=== PATIENT | male | born 1930 | race Caucasian/White ===

== ENCOUNTER 2017-08-04 07:59 | Emergency (ER) | payer OTHER ==
--- OUTSIDE RECORDS SUMMARY | 2017-08-04 08:02 | XMS REPORT | Clinical Summary ---
:1930 Author Organization [facility] Address [address] [place] [address] Care Team Providers Name Role Phone Alexandre Johnson MD Primary Care Provider Allergies Not on File Current Medications Prescription Sig. Disp. Refills Start Date End Date Status pantoprazole (PROTONIX) 40 Take 40 mg by Active MG EC tablet mouth daily. calcitriol (ROCALTROL) Take 0.25 mcg by Active 0.25 MCG capsule mouth daily. clopidogrel (PLAVIX) 75 mg Take 75 mg by Active tablet mouth daily. levothyroxine (SYNTHROID, Take 25 mcg by Active LEVOXYL) 25 mcg tablet mouth every morning. rOPINIRole (REQUIP) 4 MG Take 4 mg by mouth Active tablet nightly. atorvastatin (LIPITOR) 10 Take 10 mg by Active MG tablet mouth daily. tamsulosin (FLOMAX) 0.4 mg Take 0.4 mg by Active capsule,extended release mouth daily. 24hr metoprolol tartrate Take 25 mg by Active (LOPRESSOR) 25 mg tablet mouth 2 (two) times a day. latanoprost (XALATAN) 1 drop nightly. Active 0.005 % ophthalmic solution Active Problems Not on file Encounters Date Type Specialty Care Team Description 06/26/2017 Office Visit General Surgery Margarito Holguin MD Esophageal dysphagia (Primary Dx) 03/22/2017 Abstract General Surgery Margarito Holguin MD 03/22/2017 Abstract General Surgery Margarito Holguin MD 03/20/2017 Abstract General Surgery Margarito Holguin MD 03/20/2017 Abstract General Surgery Margarito Holguin MD 03/20/2017 Abstract General Surgery Margarito Holguin MD after 08/03/2016 Social History Tobacco Use Types Packs/Day Years Used Date Former Smoker Quit: 1967 Smokeless Tobacco: Never Used Alcohol Use Drinks/Week oz/Week Comments Yes 1 Glasses of wine 0.6 Sex Assigned at Date Recorded Not on file Last Filed Vital Signs Vital Sign Reading Time Taken Blood Pressure 147/81 06/26/2017 2:17 PM CDT Pulse 53 06/26/2017 2:17 PM CDT Temperature 36.4 C (97.6 F) 06/26/2017 2:17 PM CDT Respiratory Rate - - Oxygen Saturation 97% 06/26/2017 2:17 PM CDT Inhaled Oxygen Concentration - - Weight 80.6 kg (177 lb 9.6 oz) 06/26/2017 2:17 PM CDT Height 177.8 cm (5' 10") 06/26/2017 2:17 PM CDT Body Mass Index 25.48 06/26/2017 2:17 PM CDT Plan of Treatment Date Type Specialty Care Team Description 08/29/2017 Surgery Gastroenterology Margarito Holguin MD EGD WITH DILATION [address] [facility] [address] [place] [address] 08/29/2017 Procedure Pass Gastroenterology 08/29/2017 Hospital Encounter Gastroenterology Margarito Holguin MD [address] [facility] [address] [place] [address] Health Maintenance Due Date Last Done Comments SHINGRIX VACCINE (#1) 1980 ZOSTER VACCINE 1990 PNEUMOCOCCAL POLYSACCHARIDE VACCINE AGE 65 AND OVER 1995 PNEUMOCOCCAL-13 1995 INFLUENZA VACCINE 11/08/2017 Results Not on fileafter 08/03/2016 Insurance Payer Benefit Plan / Group Subscriber ID Type Phone Address AETNA MEDICARE AETNA MEDICARE HMO/PPO [facility] xxxxxxxx HMO [phone] [facility], [facility] [id number]
--- NOTE | 2017-08-04 09:30 | EDPHYS ---
Physician Documentation [facility] Name: Greg Huntley Age: 87 yrs Sex: Male : 1930 Arrival Date: 08/04/2017 Time: 08:01 Bed 5 Private MD: Alexandre Johnson V ED Physician Josh Garcia HPI: 08/04 09:24 This 87 yrs old Male presents to ER via Ambulatory with complaints of Fall kdr Injury, Wrist Injury. 09:24 Details of fall: The patient fell from an upright position, while walking. Onset: The kdr symptoms/episode began/occurred suddenly, just prior to arrival. Associated injuries: The patient sustained right wrist, deformity, hematoma, swelling. Severity of symptoms: At their worst the symptoms were mild, in the emergency department the symptoms are unchanged. The patient has not experienced similar symptoms in the past. The patient has not recently seen a physician. Historical: - Allergies: 08:19 No Known Allergies; sg - Home Meds: 08:19 atorvastatin oral oral [Active]; tamsulosin oral oral [Active]; Aspirin Oral [Active]; sg Docusate Sodium Oral [Active]; Niacin Oral [Active]; clopidogrel oral oral [Active]; - PMHx: 08:19 Hypertension; sg 08:21 Benign Prostatic Hypertrophy; Diverticulitis; TIA; CVA; sg - PSHx: 08:21 Appendectomy; Knee surgery; sg - Immunization history: Last tetanus immunization: - up to date. ROS: 09:24 Constitutional: Negative for fever, chills, and weight loss, Eyes: Negative for injury, kdr pain, redness, and discharge, Neck: Negative for injury, pain, and swelling, Cardiovascular: Negative for chest pain, palpitations, and edema, Respiratory: Negative for shortness of breath, cough, wheezing, and pleuritic chest pain, Abdomen/GI: Negative for abdominal pain, nausea, vomiting, diarrhea, and constipation, Back: Negative for injury and pain, : Negative for injury, bleeding, discharge, and swelling, Skin: Negative for injury, rash, and discoloration, Neuro: Negative for headache, weakness, numbness, tingling, and seizure activity. Psych: Negative for depression, anxiety, suicide ideation, homicidal ideation, and hallucinations, Allergy/Immunology: Negative for hives, rash, and allergies, Endocrine: Negative for neck swelling, polydipsia, polyuria, polyphagia, and marked weight changes, Hematologic/Lymphatic: Negative for swollen nodes, abnormal bleeding, and unusual bruising. 09:24 MS/extremity: Positive for injury or acute deformity, ecchymosis, pain, swelling, of the right wrist. Exam: 09:24 Constitutional: This is a well developed, well nourished patient who is awake, alert, kdr and in no acute distress. Head/Face: Normocephalic, atraumatic. Eyes: Pupils equal round and reactive to light, extra-ocular motions intact. Lids and lashes normal. Conjunctiva and sclera are non-icteric and not injected. Cornea within normal limits. Periorbital areas with no swelling, redness, or edema. Neck: Trachea midline, no thyromegaly or masses palpated, and no cervical lymphadenopathy. Supple, full range of motion without nuchal rigidity, or vertebral point tenderness. No Meningismus. Chest/axilla: Normal chest wall appearance and motion. Nontender with no deformity. No lesions are appreciated. Cardiovascular: Regular rate and rhythm with a normal S1 and S2. No gallops, murmurs, or rubs. Normal PMI, no JVD. No pulse deficits. Respiratory: Lungs have equal breath sounds bilaterally, clear to auscultation and percussion. No rales, rhonchi or wheezes noted. No increased work of breathing, no retractions or nasal flaring. Abdomen/GI: Soft, non-tender, with normal bowel sounds. No distension or tympany. No guarding or rebound. No evidence of tenderness throughout. Back: No spinal tenderness. No costovertebral tenderness. Full range of motion. Skin: Warm, dry with normal turgor. Normal color with no rashes, no lesions, and no evidence of cellulitis. Neuro: Awake and alert, GCS 15, oriented to person, place, time, and situation. Cranial nerves II-XII grossly intact. Motor strength 5/5 in all extremities. Sensory grossly intact. Cerebellar exam normal. Normal gait. Psych: Awake, alert, with orientation to person, place and time. Behavior, mood, and affect are within normal limits. 09:24 Musculoskeletal/extremity: Extremities: grossly normal except: noted in the right wrist: ecchymosis, swelling, no acute changes. Vital Signs: 08:15 BP 183 / 85; Pulse 87; Resp 18; Temp 97.7; Pulse Ox 98% on R/A; Pain 6/10; sg 09:15 BP 172 / 80; Pulse 60 MON; Resp 17 S; Pulse Ox 98% on R/A; Pain 3/10; sg Nikita Coma Score: 08:15 Eye Response: spontaneous(4). Verbal Response: oriented(5). Motor Response: obeys sg commands(6). Total: 15. 09:15 Eye Response: spontaneous(4). Verbal Response: oriented(5). Motor Response: obeys sg commands(6). Total: 15. Trauma Score (Adult): 08:15 Eye Response: spontaneous(1); Verbal Response: oriented(1); Motor Response: obeys sg commands(2); Systolic BP: > 89 mm Hg(4); Respiratory Rate: 10 to 29 per min(4); [place] Score: 15; Trauma Score: 12 09:15 Eye Response: spontaneous(1); Verbal Response: oriented(1); Motor Response: obeys sg commands(2); Systolic BP: > 89 mm Hg(4); Respiratory Rate: 10 to 29 per min(4); [place] Score: 15; Trauma Score: 12 MDM: 09:24 Data reviewed: vital signs, nurses notes, radiologic studies. Counseling: I had a kdr detailed discussion with the patient and/or guardian regarding: the historical points, exam findings, and any diagnostic results supporting the discharge/admit diagnosis, radiology results, the need for outpatient follow up. ED course: Follow-up with ortho. 09:29 Patient medically screened. kdr 08/04 08:26 Order name: Wrist Right 3 View XRAY kdr 08/04 08:27 Order name: Renny wrap-joint; Complete Time: 09:34 kdr Administered Medications: 08:15 Not Given (Physician Discretion): TORadol 30 mg IVP once iw Disposition: 08/04/17 09:29 Discharged to Home. Impression: Other specified sprain of right wrist. - Condition is Stable. - Discharge Instructions: Wrist Pain, [id number]. - Medication Reconciliation Form, Thank You Letter form. - Follow up: Alexandre Johnson MD; When: 2 - 3 days; Reason: If symptoms return, Further diagnostic work-up, Recheck today's complaints, Continuance of care, Re-evaluation by your physician. Follow up: Gerry Gunn MD; When: 2 - 3 days; Reason: If symptoms return, Further diagnostic work-up, Recheck today's complaints, Continuance of care, Re-evaluation by your physician. - Problem is new. - Symptoms have improved. Signatures: Dispatcher [employer] EDMS Jay Calderon RN RN Josh Garcia MD MD [facility] Yina Oneal RN Corrections: (The following items were deleted from the chart) 08:15 08:10 Abdomen Pelvis W Con+CT.RAD.BRZ ordered. EDMS EDMS 08:16 08:10 IV Saline Lock ordered. kdr iw 08:20 08:10 BASIC METABOLIC PANEL+C.LAB.BRZ ordered. EDMS EDMS 08:20 08:10 CBC+H.LAB.BRZ ordered. EDMS EDMS 08:20 08:10 Creatinine for Radiology+C.LAB.BRZ ordered. EDMS EDMS 08:20 08:10 HEPATIC FUNCTION+C.LAB.BRZ ordered. EDMS EDMS 08:20 08:10 LIPASE+C.LAB.BRZ ordered. EDMS EDMS 08:20 08:10 UA MICROSCOPIC+U.LAB.BRZ ordered. EDMS EDMS 08:26 08:10 Labs collected and sent ordered. kdr iw 08:26 08:10 Urine Dipstick-Ancillary ordered. kdr iw
--- NOTE | 2017-08-04 09:30 | ER ---
Nurse's Notes [facility] Name: Greg Huntley Age: 87 yrs Sex: Male : 1930 Arrival Date: 08/04/2017 Time: 08:01 Bed 5 Private MD: Alexandre Johnson V Diagnosis: Other specified sprain of right wrist Presentation: 08/04 08:00 Presenting complaint: Patient states: Well, if you could see a film of how you fell you ae1 just really wouldn't believe it. Im pretty sure my house shoe got me tripped up and when i fell i put my right hand down to catch me and its just really bruised and swollen. pain is about a 6/10. Care prior to arrival: None. Mechanism of Injury: Fall from standing position. 08:00 Acuity: ADDY 4 ae1 08:00 Method Of Arrival: Ambulatory ae1 Historical: - Allergies: 08:19 No Known Allergies; sg - Home Meds: 08:19 atorvastatin oral oral [Active]; tamsulosin oral oral [Active]; Aspirin Oral [Active]; sg Docusate Sodium Oral [Active]; Niacin Oral [Active]; clopidogrel oral oral [Active]; - PMHx: 08:19 Hypertension; sg 08:21 Benign Prostatic Hypertrophy; Diverticulitis; TIA; CVA; sg - PSHx: 08:21 Appendectomy; Knee surgery; sg - Immunization history: Last tetanus immunization: - up to date. Screenin:00 Abuse screen: Denies threats or abuse. Denies injuries from another. Tuberculosis sg screening: No symptoms or risk factors identified. Never had TB. Primary Survey: 08:00 A: Airway: patent. Breathing/Chest: Respiratory pattern: regular, Respiratory effort: sg spontaneous, unlabored, Breath sounds: clear, Chest inspection: symmetrical rise and fall of the chest. Circulation: Heart tones present. Pulses: palpable right radial artery and left radial artery. Skin color: pink, Skin temperature: warm. Disability Alert. 08:22 Reassessment Airway Airway Patent Oxygen No O2 Oral cavity Clear Breathing/Chest sg Respiratory pattern Regular Respiratory effort Spontaneous Unlabored Circulation Heart tones Present Pulses Palpable Color Hardin Temperature Warm Disability Alert. Secondary Survey: 08:00 HEENT: No deficits noted. Gastrointestinal: No deficits noted. : No deficits noted. sg No signs and/or symptoms were reported regarding the genitourinary system. Musculoskeletal: Circulation, motion, and sensation intact. Capillary refill is brisk, in bilateral fingers. Range of motion: intact in all extremities, Swelling present in right wrist Reports pain in right wrist. Vital Signs: 08:15 BP 183 / 85; Pulse 87; Resp 18; Temp 97.7; Pulse Ox 98% on R/A; Pain 6/10; sg 09:15 BP 172 / 80; Pulse 60 MON; Resp 17 S; Pulse Ox 98% on R/A; Pain 3/10; sg Nikita Coma Score: 08:15 Eye Response: spontaneous(4). Verbal Response: oriented(5). Motor Response: obeys sg commands(6). Total: 15. 09:15 Eye Response: spontaneous(4). Verbal Response: oriented(5). Motor Response: obeys sg commands(6). Total: 15. Trauma Score (Adult): 08:15 Eye Response: spontaneous(1); Verbal Response: oriented(1); Motor Response: obeys sg commands(2); Systolic BP: > 89 mm Hg(4); Respiratory Rate: 10 to 29 per min(4); [place] Score: 15; Trauma Score: 12 09:15 Eye Response: spontaneous(1); Verbal Response: oriented(1); Motor Response: obeys sg commands(2); Systolic BP: > 89 mm Hg(4); Respiratory Rate: 10 to 29 per min(4); Nikita Score: 15; Trauma Score: 12 ED Course: 08:00 Patient has correct armband on for positive identification. Bed in low position. Call sg light in reach. Side rails up X2. 08:00 Patient maintains SpO2 saturation greater than 95% on room air. sg 08:01 Patient arrived in ED. mr 08:01 Alexandre Johnson MD is Private Physician. mr 08:08 Josh Garcia MD is Attending Physician. kdr 08:14 Triage completed. ae1 08:32 Renny wrap to right wrist Radial pulse present and within normal limits before and after jb1 application of RENNY wrap. Capillary refill was Three seconds before and after application of RENNY wrap. 08:56 X-ray completed. Portable x-ray completed in exam room. Patient tolerated procedure mh1 well. 08:58 Wrist Right 3 View XRAY In Process Unspecified. EDMS 09:28 Alexandre Johnson MD is Referral Physician. kdr 09:29 Gerry Gunn MD is Referral Physician. kdr Administered Medications: 08:15 Not Given (Physician Discretion): TORadol 30 mg IVP once iw Outcome: : Discharge ordered by . kdr 09:48 Patient left the ED. sg Signatures: Dispatcher [employer] EDOK Israel Montejo jb1 Jay Calderon RN RN sg Josh Garcia MD MD [facility] Kiah Nj Seth Fordha 1 Eder Reynoso RN RN ae1 Yina Oneal RN iw
[2017-08-04 09:52] VITALS: TEMP 97.7; O2SAT 98
[2017-08-04 09:53] VITALS: BP 172/80
--- NOTE | 2017-08-04 10:04 | RAD REPORT ---
EXAM DESCRIPTION: RAD - Wrist Right 3 View - 08/04/2017 8:58 am CLINICAL HISTORY: Fall, wrist pain COMPARISON: None. FINDINGS: No fracture is identified. There is no dislocation or periosteal reaction noted. Degenerat reilly changes are present along the joint spaces of the trapezium and trapezoid articulations with the first metacarpal, second metacarpal and scaphoid bone. Radiocarpal joint space is narrowed slightly. No foreign body or other soft tissue abnormality. IMPRESSION: Degenerative changes are present as detailed. No acute fracture identifiable. Repeat imaging in 7 days recommended if the patient has continued symptoms suspicious for fracture.
== END 2017-08-04 09:48 | disposition home or self-care (01) ==
LOC: ER 07:59
DX: S63.501A Unspecified sprain of right wrist, initial encounter (principal); W18.30XA Fall on same level, unspecified, initial encounter; Y93.9 Activity, unspecified; Y92.009 Unspecified place in unspecified non-institutional (private) residence as the place of occurrence of the external cause; I10 Essential (primary) hypertension
CPT/HCPCS: 99284

== ENCOUNTER 2017-11-09 08:00 | Day surgery (SDC) | payer OTHER ==
--- NOTE | 2017-11-08 13:29 | RAD REPORT ---
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 The lungs appear clear of acute infiltrate. The heart is normal size IMPRESSION: No acute abnormalities displayed
--- NOTE | 2017-11-08 14:34 | EKG ---
Test Date: 2017-11-08 Test Time: 13:06:35 Accountant Bookkeeper: SHASHI MEASUREMENT RESULTS: Intervals: Rate: 50 MN: 174 QRSD: 86 QT: 458 QTc: 417 Creighton: P: 51 MN: 174 QRS: 3 T: 32 INTERPRETIVE STATEMENTS: Sinus bradycardia Otherwise normal ECG Compared to ECG 05/11/2015 10:38:04 Sinus rhythm no longer present Sinus arrhythmia no longer present Electronically Signed On 11-08-17 14:33:22 CDT by Rob Brunner
[2017-11-08 15:02] LABS: Absolute Lymphocytes (CBC) 1.3 K/uL (0.7-4.9); Absolute Monocytes 0.8 K/uL (0.1-1.3); Absolute Neutrophil 4.5 K/uL (1.8-8.0); Basophils % 1.1 % (0-1.3); Eosinophils % 3.8 % (0-4.4); Hematocrit 39.8 % (39.6-49.0); Lymphocytes % 18.4 % (15.3-44.8); MCH 31.6 pg (27.0-35.0); MCV 92.9 fL (80-100); MPV 8.6 fL (7.6-11.3); Monocytes % 11.8 % (3.3-12.3); RBC Red Blood Cell Count 4.29 M/uL (4.33-5.43)
[2017-11-09] MEDS: Ringers Lactate 1,000 ML IV ONE (08:00)
--- OUTSIDE RECORDS SUMMARY | 2017-11-09 08:08 | XMS REPORT | Clinical Summary ---
:1930 Author Organization [facility] Address [address] [place] [address] Care Team Providers Name Role Phone Alexandre [...] Encounters Date Type Specialty Care Team Description 08/29/2017 Procedure Pass Gastroenterology 08/24/2017 Documentation General Surgery Lily Andres MA 06/26/2017 Office Visit General Surgery Margarito Holguin, Esophageal dysphagia (Primary Dx) 03/22/2017 Abstract General Surgery Margarito Holguin MD 03/22/2017 Abstract General Surgery Margarito Holguin MD 03/20/2017 Abstract General Surgery Margarito Holguin MD 03/20/2017 Abstract General Surgery Margarito Holguin MD 03/20/2017 Abstract General Surgery Margarito Holguin MD after 11/08/2016 Social History Tobacco Use Types Packs/Day Years [...] 06/26/2017 2:17 PM CDT Plan of Treatment Health Maintenance Due Date Last Done Comments SHINGRIX VACCINE (#1) 1980 ZOSTER VACCINE 1990 PNEUMOCOCCAL POLYSACCHARIDE VACCINE AGE 65 AND OVER 1995 PNEUMOCOCCAL-13 1995 INFLUENZA VACCINE 11/08/2017 Results Not on fileafter 11/08/2016 Insurance Payer Benefit Plan / Group Subscriber ID Type Phone Address AETNA MEDICARE AETNA MEDICARE HMO/PPO [facility] xxxxxxxx HMO [phone] [facility] [id number]
[2017-11-09] MEDS ORDERED: CEFAZOLIN/SWI 1gm 1 GM/10 ML SYR ONE (08:46)
[2017-11-09] MEDS ORDERED: PROPOFOL 200 MG/20 ML VIAL IV ONE (08:56)
[2017-11-09] MEDS ORDERED: LIDOCAINE 2% MPF 5 ML VIAL ONE (08:57)
[2017-11-09] MEDS ORDERED: FENTANYL CITR 100 MCG/2 ML ONE ×2 (08:57→09:32)
[2017-11-09] MEDS ORDERED: ONDANSETRON HCL 40 MG/20 ML VIAL ONE (08:58)
[2017-11-09] MEDS ORDERED: GLYCOPYRROLATE 0.2 MG/ML SYR ONE (09:21)
[2017-11-09] MEDS ORDERED: EPHEDRINE SULF 50 MG/10 ML SYR ONE (09:23)
[2017-11-09] MEDS ORDERED: Ringers Lactate 1,000 ML IV ONE (10:45)
[2017-11-09] MEDS: MEPERIDINE HCL 50 MG/ML AMP ONE ×4 (11:08→11:35)
[2017-11-09] MEDS ORDERED: KETOROLAC 30 MG/ML INJ ONE (11:37)
[2017-11-09 11:44] VITALS: O2SAT 96
[2017-11-09] MEDS ORDERED: CODEINE 30MG/APAP 300MG TAB ONE (12:15)
[2017-11-09 13:37] VITALS: BP 153/81; TEMP 98.3
--- NOTE | 2017-11-09 15:07 | OP ---
Surgeon: Rafael Sofia MD [employer]uddler Pile Driving: [place]. Preoperative Diagnosis: Degeneration of left trapezium. Postoperative Diagnosis: Degeneration of left trapezium. Procedures: Trapezium resection, silicone replacement, beak ligament reconstruction, splint. Anesthesia: General. Procedure In Detail: After satisfactory induction of general anesthesia, left arm was prepped with Betadine scrub, Betadine paint, and dry sterile drapes were applied in the usual manner. Arm was elevated and exsanguinate with an Esmarch. Tourniquet was inflated to 250 mmHg. The hand was placed on a [place] table. A bayonet shaped incision placed over the first metacarpal extending over the flexor carpi radialis. Dissection was proceeded down to skin and subcutaneous tissue. The branches of the radial nerve were identified and retracted. An incision was made over the periosteum of the metacarpal and the trapezium. The trapezium was removed in piecemeal and the bone of the metacarpal was then cut straight with a saw. The canal of the first metacarpal was hollowed with a bk and then a broached the sizes, #2 size fit and then Kristina bk was used to make a bk hole for the ligament reconstruction. The patient then had the counterincision made in the forearm. The flexor carpi radialis was identified in the muscle cutaneous junction. The wire loop was used to pass and cut the tendon and the graft was advanced into the site of the previous trapezium. It was passed through the bk hole looped around itself and tied with a 4-0 Mersilene. A #2 implant was placed and then capsule closed with a 4-0 Mersilene and then the tendon graft was brought out between the abductor and the extensor pollicus brevis and then looped through sewn to itself with 4-0 Mersilene. Tourniquet was released. Electrocautery was used for hemostasis. Wound was closed with 4-0 Prolene vertical mattress and dressed with Xeroform, 2 inch Michelle, Kerlix, and a thumb spica splint. The patient tolerated the procedure well and returned to recovery. TRAN/ROLO Voice ID: [id number] Report ID: [id number] CHATO
== END 2017-11-09 13:30 | disposition home or self-care (01) ==
LOC: OR 08:00
PROVIDERS: ATTEND Specialist
PROC: 0RRR0JZ Replacement of Left Carpal Joint with Synthetic Substitute, Open Approach (ICD-10-PCS; principal; 2017-11-09 09:00)
DX: G31.89 Other specified degenerative diseases of nervous system (principal)
CPT/HCPCS: 01922; 25445; 36415; 71046; 85025; 88304; 88311; 93005; J0690; J2175 ×2; J2405; J3010 ×2

== ENCOUNTER 2017-11-26 06:49 | Inpatient (IN) | payer OTHER ==
--- OUTSIDE RECORDS SUMMARY | 2017-11-26 06:51 | XMS REPORT | Clinical Summary ---
:1930 Author Organization [facility] Address [address] [place] [address] Care Team Providers Name Role Phone Alexandre [...] Encounters Date Type Specialty Care Team Description 11/10/2017 Transcribe Orders Physical Therapy Rafael Sofia Hand arthropathy MD Juan Daniel (Primary Dx) 08/29/2017 Procedure Pass Gastroenterology 08/24/2017 Documentation General Surgery Lily Andres MA 06/26/2017 Office Visit General Surgery Margarito Holguin Esophageal dysphagia (Primary Dx) 03/22/2017 Abstract General Surgery Margarito Holguin MD 03/22/2017 Abstract General Surgery Margarito Holguin MD 03/20/2017 Abstract General Surgery Margarito Holguin MD 03/20/2017 Abstract General Surgery Margarito Holguin MD 03/20/2017 Abstract General Surgery Margarito Holguin MD after 11/25/2016 Social History Tobacco Use Types Packs/Day Years [...] INFLUENZA VACCINE 11/08/2017 Results Not on fileafter 11/25/2016 Insurance Payer Benefit Plan / Group Subscriber ID Type Phone Address AETNA MEDICARE AETNA MEDICARE HMO/PPO [facility] xxxxxxxx HMO [phone] [facility], [address] [place] [address]
[2017-11-26 08:13] LABS: Absolute Lymphocytes (CBC) 0.7 K/uL (0.7-4.9); Absolute Monocytes 1.9 K/uL (0.1-1.3); Absolute Neutrophil 12.9 K/uL (1.8-8.0); Basophils % 0.4 % (0-1.3); Eosinophils % 0.7 % (0-4.4); Hematocrit 35.2 % (39.6-49.0); Lymphocytes % 4.3 % (15.3-44.8); MCH 31.5 pg (27.0-35.0); MPV 7.8 fL (7.6-11.3); RBC Red Blood Cell Count 3.83 M/uL (4.33-5.43)
[2017-11-26 08:17] LABS: Protime INR 1.19
[2017-11-26 08:26] LABS: BUN Blood Urea Nitrogen 24 mg/dL (7-18); Bicarbonate 24 mmol/L (21-32); CKMB Creatine Kinase MB < 1.0 ng/mL (0.3-3.6); Creatine Phosphokinase 113 U/L (39-308); Glucose Level 109 mg/dL (74-106); Potassium 4.3 mmol/L (3.5-5.1); Sodium Level 137 mmol/L (136-145)
[2017-11-26 08:50] LABS: Urine Bacteria <20 /HPF (NONE SEEN); Urine Culture Reflex Order NOT NEEDED
[2017-11-26 08:51] LABS: Urine RBC 20-50 /HPF (NONE SEEN)
[2017-11-26] MEDS ORDERED: LIDOCAINE VISCOUS 2% SOLN 15 ML UDC ONE (08:56)
--- NOTE | 2017-11-26 09:02 | ER ---
Nurse's Notes [facility] Name: Greg Huntley Age: 87 yrs Sex: Male : 1930 Arrival Date: 11/26/2017 Time: 06:50 Bed 18 Private MD: Alexandre Johnson V Diagnosis: Urinary tract infection, site not specified-failed outpatient therapy;Fever, unspecified Presentation: 11/26 07:14 Presenting complaint: Patient states: c/o fever and chills since last night, has iw catheter in place X10 days, was supposed to have prostate surgery but was unable to because he wasn't feeling well, saw dr. Johnson on , culture done, placed on cefuroxime antibiotic, having pain and irritability in bladder. Transition of care: patient was not received from another setting of care. Onset of symptoms was November 25, 2017. Risk Assessment: Do you want to hurt yourself or someone else? Patient reports no desire to harm self or others. Initial Sepsis Screen: Does the patient meet any 2 criteria? No. Patient's initial sepsis screen is negative. Does the patient have a suspected source of infection?. Care prior to arrival: Medication(s) given: Tylenol, 500 mg at 0500. 07:14 Method Of Arrival: Ambulatory iw 07:14 Acuity: ADDY 3 iw Historical: - Allergies: 07:23 NKA; iw - Home Meds: 07:23 calcitriol 0.25 mcg oral cap 1 cap once daily [Active]; Plavix 75 mg Oral tab 1 tab iw once daily [Active]; levothyroxine 25 mcg tab 1 tab once daily [Active]; ropinirole 4 mg oral tab twice a day [Active]; atorvastatin 10 mg oral tab 1 tab once daily [Active]; metoprolol tartrate 25 mg Oral tab 1 tab once daily [Active]; latanoprost 0.005 % ophthalmic drop 1 drop once daily [Active]; Cefuroxime Oral 250 mg twice a day [Active]; - PMHx: 07:23 Benign Prostatic Hypertrophy; CVA; Diverticulitis; Hypertension; TIA; iw - PSHx: 07:23 Appendectomy; Knee surgery; left arm; iw - Immunization history:: Adult Immunizations up to date. - Social history:: Smoking status: Patient/guardian denies using tobacco. - Ebola Screening: : Patient negative for fever greater than or equal to 101.5 degrees Fahrenheit, and additional compatible Ebola Virus Disease symptoms Patient denies exposure to infectious person Patient denies travel to an Ebola-affected area in the 21 days before illness onset No symptoms or risks identified at this time. Screenin:01 Abuse screen: Denies threats or abuse. Nutritional screening: No deficits noted. em Tuberculosis screening: No symptoms or risk factors identified. Fall Risk None identified. Assessment: 07:50 General: Appears in no apparent distress. Behavior is calm, cooperative, Reports chills em for >3 days, fever for > 3 days. Pain: Denies pain. Neuro: Level of Consciousness is awake, alert, obeys commands, Oriented to person, place, time, situation, Speech is normal, Facial symmetry appears normal, Intact Denies. Cardiovascular: Denies chest pain, Capillary refill < 3 seconds Patient's skin is warm and dry. Respiratory: Reports cough that is dry, hacking, Airway is patent Respiratory effort is even, unlabored, Respiratory pattern is regular, symmetrical, Breath sounds are clear bilaterally. Onset: The symptoms/episode began/occurred about 3 days ago. GI: Abdomen is round non-distended, Abd is soft and non tender X 4 quads. : Meraz in place Denies burning with urination. EENT: No signs and/or symptoms were reported regarding the EENT system. Derm: Skin is intact, Skin is pink, warm \T\ dry. Musculoskeletal: Range of motion: intact in all extremities, splint noted to left arm due to prior surgery. 08:00 Reassessment: Patient appears in no apparent distress at this time. I agree with above iw assessment by Cuate Dean LVN. 09:00 Reassessment: Patient appears in no apparent distress at this time. Patient and/or em family updated on plan of care and expected duration. Pain level reassessed. Patient is alert, oriented x 3, equal unlabored respirations, skin warm/dry/pink. Dr. Herrera at bedside discussing POC, new orders received to replace Meraz catheter. 09:45 Reassessment: Patient appears in no apparent distress at this time. Patient and/or em family updated on plan of care and expected duration. Pain level reassessed. Patient is alert, oriented x 3, equal unlabored respirations, skin warm/dry/pink. pending room assignment, sheet given to pt due to 99.6 oral temp. Patient denies pain at this time. 10:48 Reassessment: Patient appears in no apparent distress at this time. Patient and/or em family updated on plan of care and expected duration. Pain level reassessed. Patient is alert, oriented x 3, equal unlabored respirations, skin warm/dry/pink. Patient denies pain at this time. Patient states feeling better. Vital Signs: 07:23 BP 123 / 63; Pulse 71; Resp 16; Temp 98.8(TE); Pulse Ox 96% on R/A; Weight 79.83 kg; iw Height 5 ft. 10 in. (177.80 cm); Pain 0/10; 08:00 BP 135 / 75; Pulse 70; Resp 16; Pulse Ox 98% on R/A; Pain 0/10; em 09:00 BP 145 / 77; Pulse 72; Resp 18; Pulse Ox 97% on R/A; em 10:00 BP 141 / 76; Pulse 67; Resp 18; Temp 99.6(O); Pulse Ox 96% on R/A; em 10:51 BP 136 / 78; Pulse 73; Resp 16; Temp 98.8(O); Pulse Ox 98% on R/A; Pain 0/10; em 07:23 Body Mass Index 25.25 (79.83 kg, 177.80 cm) iw ED Course: 06:50 Patient arrived in ED. ds1 06:50 Alexandre Johnson MD is Private Physician. ds1 07:12 [facility] kb 07:12 Marvin Aguilar MD is Attending Physician. kb 07:18 Triage completed. iw 07:23 Arm band placed on. iw 08:01 Cuate Dean LVN is Primary Nurse. em 08:01 Patient has correct armband on for positive identification. Placed in gown. Bed in low em position. Call light in reach. nurse monitoring on. Pulse ox on. NIBP on. 08:02 Initial lab(s) drawn, by me, sent to lab. Inserted saline lock: 20 gauge in right em forearm, using aseptic technique. Blood collected. 09:00 Alexandre Johnson MD is Hospitalizing Provider. kb 10:53 No provider procedures requiring assistance completed. Patient admitted, IV remains in em place. 10:54 Meraz cath inserted, using sterile technique, 16 Fr., by me, balloon inflated, urine em specimen collected. Administered Medications: 08:58 CANCELLED (changed to different antibiotic per Dr Johnson): Meropenem 1 grams IV at kb calculated rate once; (mix in NS 100 mL) 09:44 Drug: Cefepime 1 grams Route: IVPB; Rate: 200 ml/hr; Infused Over: 30 mins; Site: right em forearm; 10:17 Follow up: Response: No adverse reaction; IV Status: Completed infusion; IV Intake: em 100ml Intake: 10:17 IV: 100ml; Total: 100ml. em Outcome: 09:01 Decision to Hospitalize by Provider. kb 10:59 Admitted to Tele accompanied by tech, family with patient, via wheelchair, room 403, em with chart, Report called to TEO Sarah 10:59 Condition: good 10:59 Instructed on the need for admit, Demonstrated understanding of instructions. 11:20 Patient left the ED. em Signatures: Francine Carey, METAL BALER-C METAL BALER-Ckb Cuate Dean, INDUSTRIAL PHARMACIST INDUSTRIAL PHARMACIST em Jalen, Pamella ds1 Yina Oneal, RN RN iw Corrections: (The following items were deleted from the chart) 07:26 07:23 BP 123 / 63; Pulse 71bpm; Resp 16bpm; Pulse Ox 96% RA; 79.83 kg; Height 5 ft. 10 iw in.; BMI: 25.2; Pain 0/10; iw
--- NOTE | 2017-11-26 09:02 | EDPHYS ---
Physician Documentation [facility] Name: Greg Huntley Age: 87 yrs Sex: Male : 1930 Arrival Date: 11/26/2017 Time: 06:50 Bed 18 Private MD: Alexandre Johnson V ED Physician Marvin Aguilar HPI: 11/26 07:34 This 87 yrs old Male presents to ER via Ambulatory with complaints of Fever. kb 07:34 The patient reports fever, that was measured at 100.9 degrees Fahrenheit, with an kb emergency department temperature of 98.8 degrees Fahrenheit. Onset: The symptoms/episode began/occurred 4 day(s) ago, and became worse last night. Modifying factors: there are no obvious modifying factors. Associated signs and symptoms: Pertinent positives: chills. Severity of symptoms: At their worst the symptoms were moderate in the emergency department the symptoms have resolved. The patient has not experienced similar symptoms in the past. The patient has been recently seen by a physician: the patient's primary care provider, Dr. Johnson 4 day(s) ago, with similar presenting complaints, and apparently given a diagnosis of UTI, was given a prescription for antibiotics. Pt states he started having fever and chills on , went to Dr Johnson and was given antibiotics for UTI. Last night fever and chills were "really bad." Has had griffiths catheter in for 10 days, placed by Dr Herrera.. Historical: - Allergies: 07:23 NKA; iw - Home Meds: :23 calcitriol 0.25 mcg oral cap 1 cap once daily [Active]; Plavix 75 mg Oral tab 1 tab iw once daily [Active]; levothyroxine 25 mcg tab 1 tab once daily [Active]; ropinirole 4 mg oral tab twice a day [Active]; atorvastatin 10 mg oral tab 1 tab once daily [Active]; metoprolol tartrate 25 mg Oral tab 1 tab once daily [Active]; latanoprost 0.005 % ophthalmic drop 1 drop once daily [Active]; Cefuroxime Oral 250 mg twice a day [Active]; - PMHx: 07:23 Benign Prostatic Hypertrophy; CVA; Diverticulitis; Hypertension; TIA; iw - PSHx: 07:23 Appendectomy; Knee surgery; left arm; iw - Immunization history:: Adult Immunizations up to date. - Social history:: Smoking status: Patient/guardian denies using tobacco. - Ebola Screening: : Patient negative for fever greater than or equal to 101.5 degrees Fahrenheit, and additional compatible Ebola Virus Disease symptoms Patient denies exposure to infectious person Patient denies travel to an Ebola-affected area in the 21 days before illness onset No symptoms or risks identified at this time. ROS: 07:34 Cardiovascular: Negative for chest pain, palpitations, and edema, Respiratory: Negative kb for shortness of breath, cough, wheezing, and pleuritic chest pain, Abdomen/GI: Negative for abdominal pain, nausea, vomiting, diarrhea, and constipation, Back: Negative for injury and pain, : Negative for injury, bleeding, discharge, and swelling, MS/Extremity: Negative for injury and deformity, Skin: Negative for injury, rash, and discoloration, Neuro: Negative for headache, weakness, numbness, tingling, and seizure. 07:34 Constitutional: Positive for body aches, chills, fever, Negative for fatigue, malaise, poor PO intake, weight loss. Exam: 07:34 Constitutional: This is a well developed, well nourished patient who is awake, alert, kb and in no acute distress. Head/Face: Normocephalic, atraumatic. Chest/axilla: Normal chest wall appearance and motion. Nontender with no deformity. No lesions are appreciated. Cardiovascular: Regular rate and rhythm with a normal S1 and S2. No gallops, murmurs, or rubs. Normal PMI, no JVD. No pulse deficits. Respiratory: Lungs have equal breath sounds bilaterally, clear to auscultation and percussion. No rales, rhonchi or wheezes noted. No increased work of breathing, no retractions or nasal flaring. Abdomen/GI: Soft, non-tender, with normal bowel sounds. No distension or tympany. No guarding or rebound. No evidence of tenderness throughout. Skin: Warm, dry with normal turgor. Normal color with no rashes, no lesions, and no evidence of cellulitis. MS/ Extremity: Pulses equal, no cyanosis. Neurovascular intact. Full, normal range of motion. Neuro: Awake and alert, GCS 15, oriented to person, place, time, and situation. Cranial nerves II-XII grossly intact. Motor strength 5/5 in all extremities. Sensory grossly intact. Cerebellar exam normal. Normal gait. Vital Signs: 07:23 BP 123 / 63; Pulse 71; Resp 16; Temp 98.8(TE); Pulse Ox 96% on R/A; Weight 79.83 kg; iw Height 5 ft. 10 in. (177.80 cm); Pain 0/10; 08:00 BP 135 / 75; Pulse 70; Resp 16; Pulse Ox 98% on R/A; Pain 0/10; em 09:00 BP 145 / 77; Pulse 72; Resp 18; Pulse Ox 97% on R/A; em 10:00 BP 141 / 76; Pulse 67; Resp 18; Temp 99.6(O); Pulse Ox 96% on R/A; em 10:51 BP 136 / 78; Pulse 73; Resp 16; Temp 98.8(O); Pulse Ox 98% on R/A; Pain 0/10; em 07:23 Body Mass Index 25.25 (79.83 kg, 177.80 cm) iw MDM: 07:12 Patient medically screened. 07:34 Data reviewed: vital signs, nurses notes. Data interpreted: Pulse oximetry: on room air kb is 96 %. Interpretation: normal. 08:55 Physician consultation: Roberto Herrera MD regarding consult, patient's condition, in the emergency department to see patient at 08:55. 09:00 Physician consultation: Alexandre Johnson MD was contacted at 09:00, regarding admission, to the telemetry unit. patient's condition, and will see patient in inpatient room. 09:00 Counseling: I had a detailed discussion with the patient and/or guardian regarding: the historical points, exam findings, and any diagnostic results supporting the discharge/admit diagnosis, lab results, the need for further work-up and treatment in the hospital. 11/26 07:23 Order name: Basic Metabolic Panel; Complete Time: 08:30 kb 11/26 07:23 Order name: Blood Culture Adult (2) 11/26 07:23 Order name: CBC with Diff; Complete Time: 08:19 kb 11/26 07:23 Order name: Ckmb; Complete Time: 08:30 kb 11/26 07:23 Order name: CPK; Complete Time: 08:30 kb 11/26 07:23 Order name: Lactate; Complete Time: 08:30 kb 11/26 07:23 Order name: Procalcitonin; Complete Time: 08:49 kb 11/26 07:23 Order name: Protime (+inr); Complete Time: 08:24 kb 11/26 07:23 Order name: Ptt, Activated; Complete Time: 08:24 kb 11/26 07:23 Order name: Troponin (emerg Dept Use Only); Complete Time: 08:30 kb 11/26 07:23 Order name: Urine Culture kb 11/26 07:23 Order name: Urine Microscopic Only; Complete Time: 08:52 kb 11/26 10:26 Order name: Urine Dipstick--Ancillary (enter results) bd 11/26 11:15 Order name: Urine Dipstick-Ancillary EDMS 11/26 07:23 Order name: Cardiac monitoring; Complete Time: 08:45 kb 11/26 07:23 Order name: EKG - Nurse/Tech; Complete Time: 08:45 kb 11/26 07:23 Order name: IV Saline Lock - Large Bore; Complete Time: 08:01 kb 11/26 07:23 Order name: Labs collected and sent; Complete Time: 08:01 kb 11/26 07:23 Order name: O2 Per Protocol; Complete Time: 08:01 kb 11/26 07:23 Order name: O2 Sat Monitoring; Complete Time: 08:01 kb 11/26 07:23 Order name: Urine Dipstick-Ancillary (obtain specimen); Complete Time: 09:45 kb 11/26 08:51 Order name: Griffiths: replace with new griffiths; Complete Time: 09:45 kb Administered Medications: 08:58 CANCELLED (changed to different antibiotic per Dr Johnson): Meropenem 1 grams IV at kb calculated rate once; (mix in NS 100 mL) 09:44 Drug: Cefepime 1 grams Route: IVPB; Rate: 200 ml/hr; Infused Over: 30 mins; Site: right em forearm; 10:17 Follow up: Response: No adverse reaction; IV Status: Completed infusion; IV Intake: em 100ml Disposition: 11/27 09:14 Co-signature as Attending Physician, Marvin Aguilar MD I agree with the assessment and isai plan of care. Disposition: 11/26/17 09:01 Hospitalization ordered by Alexandre Johnson for Inpatient Admission. Preliminary diagnosis are Urinary tract infection, site not specified - failed outpatient therapy, Fever, unspecified. - Bed requested for Telemetry/MedSurg (Inpatient). - Status is Inpatient Admission. em - Condition is Stable. - Problem is an ongoing problem. - Symptoms are unchanged. UTI on Admission? Yes Signatures: Dispatcher [employer] EDFrancine Rick, REEL WINDER-C REEL WINDER-Lupe Ramos, RN RN Marvin Dominique MD MD cha Munoz, Edgar, HOSPITAL SCIENTIST HOSPITAL SCIENTIST em Yina Oneal, RN RN iw Corrections: (The following items were deleted from the chart) 11/26 08:58 08:51 Meropenem 1 grams IV at calculated rate once; (mix in NS 100 mL) ordered. kb kb 10:36 09:01 Hospitalization Ordered by Alexandre Johnson MD for Inpatient Admission. Preliminary dw diagnosis is Urinary tract infection, site not specified - failed outpatient therapy; Fever, unspecified. Bed requested for Telemetry/MedSurg (Inpatient). Status is Inpatient Admission. Condition is Stable. Problem is an ongoing problem. Symptoms are unchanged. UTI on Admission? Yes. kb 11:20 10:36 11/26/2017 09:01 Hospitalization Ordered by Alexandre Johnson MD for Inpatient em Admission. Preliminary diagnosis is Urinary tract infection, site not specified - failed outpatient therapy; Fever, unspecified. Bed requested for Telemetry/MedSurg (Inpatient). Status is Inpatient Admission. Condition is Stable. Problem is an ongoing problem. Symptoms are unchanged. UTI on Admission? Yes. dw
[2017-11-26] MEDS ORDERED: CEFEPIME 1 GM/100 ML BAG IV ONE (09:31)
[2017-11-26 11:14] LABS: Urine Blood 2+ (NEG); Urine Glucose NEGATIVE (NEG); Urine Protein 2+ (NEG)
[2017-11-26] MEDS: ACETAMINOPHEN 500 MG TAB PO PRN ×2 (11:46→19:55)
--- NOTE | 2017-11-26 12:16 | P.HP ---
Certification for Inpatient Patient admitted to: Inpatient With expected LOS: >2 Midnights Practitioner: I am a practitioner with admitting privileges, knowledge of patient current condition, hospital course, and medical plan of care. Services: Services provided to patient in accordance with Admission requirements found in Title 42 Section 412.3 of the Code of Federal Regulations Patient History Date of Service: 11/26/17 Reason for admission: FEVER , CHILLS History of Present Illness: MR. LUDWIG CAME WITH FEVER AND CHILLS AT OFFICE ON MON. HE HAS INDWELLING HAGEN FOR BPH, RETENTION OF URINE AND FAILED UROLIFT PROCEDURE. I GAVE HIM CEFTIN PO. HE GREW CULTURE WITH PSEUDOMONAS. WITH INTENTION OF ADMISSION I CALLED HIM ON MONDAY. BY THIS TIME HE HAD NO FEVER FELT GREAT. I TOLD HIM THAT A COLONIZED BACTERIA CAN GROW FROM CATHETHER SO WE WILL WATCH. I WILL SEE HIM ON MONDAY AT OFFICE AND IF HE HAS MORE FEVER AND CHILLS THEN TO COME TO ER . HE LAST NIGHT STARTED TO HAVE FEVER AGAIN AND REPORTED TO ER TODAY. I CALLED ER PA SOON I SAW HIS NAME COME UP ON MY COMPUTER AND ADVISED CEFEPIME AND NOT MERREM TO AVOID A VERY STRONG AB THAT CAN BE A OVERKILL AND CREATE COMPLICATIONS LIKE C. DIFFICILE TOXIN. I EXPLAINED TO THE PA IN ER. Allergies No Known Allergies Allergy (Verified 11/09/17 09:05) Home Medications: Atorvastatin Calcium [Lipitor*] 1 tab PO BEDTIME 05/11/15 Clopidogrel Bisulfate [Plavix] 1 tab PO DAILY 05/11/15 Ropinirole HCl [Requip] 1 tab PO BID 05/11/15 Tamsulosin HCl [Flomax] 1 cap PO DAILY 05/11/15 Docusate [Colace Cap*] 100 mg PO DAILY PRN #60 cap 05/12/15 C,E,Zinc,Copper 11/Ukqkj0t/Lut [Ocuvite Adult 50 Plus Softgel] 1 each PO DAILY 11/08/17 Calcitriol [Rocaltrol] 0.25 mcg PO M,W,F 11/08/17 Diphenhydramine HCl [Sleep Aid] 50 mg PO BEDTIME 11/08/17 Latanoprost [Xalatan] 1 gtt EACH EYE BEDTIME 11/08/17 Levothyroxine Sodium 25 mcg PO DAILY 11/08/17 Metoprolol Succinate [Toprol Xl] 25 mg PO DAILY AFTER SUPPER 11/08/17 - Past Medical/Surgical History Diabetic: No -: CVA -: TIA -: RLS -: appy -: knee SX - Social History Alcohol use: No CD- Drugs: No Caffeine use: Yes Review of Systems 10-point ROS is otherwise unremarkable General: Weakness Physical Examination - Vital Signs Temperature: 98.8 F Blood Pressure: 136/78 Pulse: 73 Respirations: 16 - Physical Exam General: Alert, In no apparent distress HEENT: Atraumatic, PERRLA, Mucous membr. moist/pink, EOMI, Sclerae nonicteric Neck: Supple, 2+ carotid pulse no bruit, No LAD, Without JVD or thyroid abnormality Respiratory: Clear to auscultation bilaterally, Normal air movement Cardiovascular: Regular rate/rhythm, Normal S1 S2 Gastrointestinal: Normal bowel sounds, No tenderness Musculoskeletal: No tenderness Integumentary: No rashes Neurological: Normal gait, Normal speech, Normal strength at 5/5 x4 extr, Normal tone, Normal affect Lymphatics: No axilla or inguinal lymphadenopathy Urinary: Hagen catheter (INDWELLING UNTIL SURGERY ON ) - Studies Laboratory Data (last 24 hrs) 11/26/17 07:50: PT 14.1 H, INR 1.19, APTT 32.6 11/26/17 07:50: WBC 15.7 H D, Hgb 12.1 L, Hct 35.2 L, Plt Count 263 11/26/17 07:50: Sodium 137, Potassium 4.3, BUN 24 H, Creatinine 1.40 H, Glucose 109 H Assessment and Plan - Problems (Diagnosis) (1) Pseudomonas urinary tract infection Current Visit: Yes Status: Acute Plan: DETAILED IN HP RESUME ABX. PLAN FOR HOME IV ABX TOTAL 14 DAYS. I WILL SEE HIM IN OFFICE ON Mon. EXPLAINED IN DETAIL TO PATIENT AND FAMILY. 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 BARTHOLOMEW TO TAKE CARE OF LASER SURGERY. - Advance Directives Does patient have a Living Will: No Does patient have a Durable POA for Healthcare: No
[2017-11-26 12:35] VITALS: BMI 25.1
[2017-11-26] MEDS: CEFEPIME/SWI 1gm 1 GM/10 ML SYR IVP SCH ×2 (13:00→20:04)
--- NOTE | 2017-11-26 17:10 | RAD REPORT ---
EXAM DESCRIPTION: RAD - Chest Single View - 11/26/2017 4:01 pm CLINICAL HISTORY: PICC line placement COMPARISON: November 22 FINDINGS: Portable chest was obtained following placement of a right upper extremity PICC line. The catheter tip is in the SVC atrial junction.
[2017-11-26] MEDS ORDERED: DIPHENHYDRAMINE 25 MG TAB/CAP PO PRN (19:33)
[2017-11-26] MEDS ORDERED: CALCITROL 0.25 MCG CAP PO SCH (20:00)
[2017-11-26] MEDS: ROPINIROLE HCL 1 MG TAB PO SCH (20:18)
[2017-11-26] MEDS: ATORVASTATIN 10 MG TAB PO SCH (20:20)
[2017-11-26] MEDS: LATANOPROST 0.005% 2.5ML OPTH OPTH SCH (20:21)
[2017-11-26] MEDS ORDERED: CEFEPIME 1 GM/VIAL IV SCH (21:00)
[2017-11-26] MEDS ORDERED: SODIUM CHLORIDE 0.9% 10ML INJ IV PRN ×2 (21:13→21:16)
[2017-11-26] MEDS: NACHLORIDE 0.45% 1,000 ML IV SCH (22:35)
[2017-11-27] MEDS: SODIUM CHLORIDE 0.9% 10ML INJ IV SCH ×3 (00:26→17:00)
[2017-11-27] MEDS: METOPROLOL TAR 25 MG TAB PO SCH (05:08)
[2017-11-27] MEDS: ACETAMINOPHEN 500 MG TAB PO PRN ×2 (05:09→22:37)
[2017-11-27] MEDS: LEVOTHYROXINE SOD 0.125 MG TAB PO SCH (05:09)
[2017-11-27 05:17] LABS: Absolute Lymphocytes (CBC) 0.9 K/uL (0.7-4.9); Basophils % 0.4 % (0-1.3); Eosinophils % 0.7 % (0-4.4); Hematocrit 32.1 % (39.6-49.0); Lymphocytes % 4.8 % (15.3-44.8); MCH 31.9 pg (27.0-35.0); MCV 92.7 fL (80-100); MPV 7.7 fL (7.6-11.3); Monocytes % 11.1 % (3.3-12.3); RBC Red Blood Cell Count 3.46 M/uL (4.33-5.43)
[2017-11-27 06:16] LABS: Potassium 3.8 mmol/L (3.5-5.1)
--- NOTE | 2017-11-27 07:52 | EKG ---
Test Date: 2017-11-26 Test Time: 08:12:20 Consulting Practice Director: CYNDI MEASUREMENT RESULTS: Intervals: Rate: 69 MN: 166 QRSD: 92 QT: 412 QTc: 441 [place]anger: P: 46 MN: 166 QRS: 4 T: 17 INTERPRETIVE STATEMENTS: Sinus rhythm with marked sinus arrhythmia Otherwise normal ECG Compared to ECG 11/08/2017 13:06:35 Sinus bradycardia no longer present Electronically Signed On 11-27-17 07:50:59 CDT by Rob Brunner
--- NOTE | 2017-11-27 08:29 | CON ---
Chief Complaint: Fevers with UTI Pseudomonas. History Of Present Illness: Mr. Huntley is an 87-year-old gentleman who has been on outpatient antibiotics; cefuroxime b.i.d. for Pseudomonas aeruginosa, sensitive to gentamicin, sensitive to Timentin, tobramycin, piperacillin and tazobactam, cefepime, meropenem, amikacin, and is resistant to Cipro and Levaquin. He is experiencing break thru fevers. He came to ER and will need to admit him for IV meropenem. He had 800 cc urinary retention few days ago and had a catheter placed. He had UroLift performed before and I recommended vaporization, last time I saw him in the office, but eventually he decided to do his TURP resection vaporization. He has been having some chills and fevers lately on the p.o. antibiotics. He has failed outpatient antibiotics and needs to come in for IV antibiotics. Also started on meropenem, may put a PICC line in until surgery. Past Medical History: High cholesterol, stroke, affecting the right arm. Surgical History: UroLift, hernia surgery, thumb surgery. Family History: Father had a heart attack. Immunizations: Up-to-date. Social History: Tobacco, none. Alcohol, none. Drugs, none. Current Medications: Flomax, cefuroxime, ropinirole, Plavix, simvastatin, metoprolol, Synthroid. Allergies: NO KNOWN DRUG ALLERGIES. Physical Examination: VITAL SIGNS: Reviewed. Afebrile. Stable. No fevers in the ER currently. GENERAL: Alert, oriented, well-nourished, well-hydrated. He is alert and oriented x3. NECK: Supple. CHEST: Clear. HEART: S1, S2. ABDOMEN: Soft, nontender. : Meraz catheter draining. Assessment: Urinary retention, urinary tract infection, benign prostatic hyperplasia. Plan: Admit for IV meropenem. Plan to do cysto, TURP later. We will switch his Meraz catheter to a new one while on antibiotics. DUNG/ROLO Voice ID: [id number] Report ID: [id number] CHATO
[2017-11-27] MEDS: ROPINIROLE HCL 1 MG TAB PO SCH ×2 (09:00→21:00)
[2017-11-27] MEDS: CEFEPIME/SWI 1gm 1 GM/10 ML SYR IVP SCH ×2 (09:25→20:17)
[2017-11-27] MEDS: CLOPIDOGREL 75 MG TABLET PO SCH (09:26)
[2017-11-27] MEDS: OCUVITE (VIT A,C & E/LUTEIN/MINERAL) TABLET PO SCH (09:26)
[2017-11-27] MEDS: NACHLORIDE 0.45% 1,000 ML IV SCH ×2 (12:18→20:17)
[2017-11-27] MEDS ORDERED: CALCITROL 0.25 MCG CAP PO SCH (17:00)
--- NOTE | 2017-11-27 17:50 | P.PN ---
Subjective Date of Service: 11/27/17 Chief Complaint: FEVER , CHILLS Subjective: Improving (HE IS DOINGA LOT BETTER. HE IS NOT HAPPY ABOUT UROLIFT. HE WANTS UROLOGIST IN [place] TO TAKE CARE OF PROSTATE SURGERY NOW.) Review of Systems 10-point ROS is otherwise unremarkable General: Weakness, Malaise Physical Examination - Vital Signs Temperature: 97.6 F Blood Pressure: 150/71 Pulse: 69 Respirations: 18 Pulse Ox (%): 97 - Physical Exam General: Alert, Mild distress HEENT: Atraumatic, PERRLA, EOMI Neck: Supple, JVD not distended Respiratory: Clear to auscultation bilaterally, Normal air movement Cardiovascular: Regular rate/rhythm, Normal S1 S2 Gastrointestinal: Normal bowel sounds, No tenderness Musculoskeletal: No tenderness Integumentary: No rashes Neurological: Normal speech, Normal tone, Normal affect Lymphatics: No axilla or inguinal lymphadenopathy - Studies Medications List Reviewed: Yes Assessment And Plan - Current Problems (Diagnosis) (1) Pseudomonas urinary tract infection Onset Date: 11/27/17 Current Visit: Yes Status: Acute Plan: DETAILED IN [facility] RESUME ABX. PLAN FOR HOME IV ABX TOTAL 14 DAYS. I WILL SEE HIM IN OFFICE ON Mon. EXPLAINED IN DETAIL TO PATIENT AND FAMILY. HE IS AFEBRILE NOW I NEED 14 DAYS OF ABX IV TO BE GIVEN TO HIM WE DID PICC LINE AND WILL FU WITH TABLE ATTENDANT TO ARRANGE FOR ABX. ABOVE FOR UROLOGIST. (2) Retention of urine Onset Date: 11/27/17 Current Visit: Yes Status: Chronic Plan: DR. BARTHOLOMEW TO TAKE CARE OF LASER SURGERY.
--- NOTE | 2017-11-27 18:37 | PN ---
Subjective: The patient is feeling well. Objective: [place] [address] [place] [address] today and H and H are 11 and 32. His urine is growing gram-negative rods in urine. PTT is 14.1 and 32.6. Chemistry shows BUN 24, creatinine 1.3, GFR 2. Patient is on cefepime 1 g q.12 hours. Assessment: Pseudomonas urinary tract infection. [place] catheter is placed. PICC line in place. The patient received IV antibiotics for 14 days and I recommend TURP after that. DUNG/ROLO Voice ID: [id number] Report ID: [id number]
[2017-11-27] MEDS: ATORVASTATIN 10 MG TAB PO SCH (20:16)
[2017-11-27] MEDS: LATANOPROST 0.005% 2.5ML OPTH OPTH SCH (20:17)
[2017-11-28] MEDS: SODIUM CHLORIDE 0.9% 10ML INJ IV SCH ×3 (01:00→15:50)
[2017-11-28] MEDS: LEVOTHYROXINE SOD 0.125 MG TAB PO SCH (05:56)
[2017-11-28] MEDS: METOPROLOL TAR 25 MG TAB PO SCH (05:57)
[2017-11-28 06:53] LABS: Absolute Lymphocytes (CBC) 0.9 K/uL (0.7-4.9); Absolute Monocytes 1.5 K/uL (0.1-1.3); Absolute Neutrophil 6.9 K/uL (1.8-8.0); Basophils % 0.8 % (0-1.3); Eosinophils % 4.7 % (0-4.4); Hematocrit 32.3 % (39.6-49.0); Lymphocytes % 9.4 % (15.3-44.8); MCH 31.7 pg (27.0-35.0); MCV 92.3 fL (80-100); MPV 7.7 fL (7.6-11.3); Monocytes % 15.5 % (3.3-12.3)
[2017-11-28 07:05] LABS: Potassium 3.8 mmol/L (3.5-5.1)
[2017-11-28 08:20] VITALS: O2SAT 97
[2017-11-28] MEDS ORDERED: CIPROFLOXACIN HCL 500 MG TAB PO SCH (09:00)
[2017-11-28] MEDS: CEFEPIME/SWI 1gm 1 GM/10 ML SYR IVP SCH ×2 (09:00→15:39)
[2017-11-28] MEDS: ROPINIROLE HCL 1 MG TAB PO SCH (09:06)
[2017-11-28] MEDS: CLOPIDOGREL 75 MG TABLET PO SCH (09:07)
[2017-11-28] MEDS: OCUVITE (VIT A,C & E/LUTEIN/MINERAL) TABLET PO SCH (09:07)
--- NOTE | 2017-11-28 09:23 | PN ---
Subjective: The patient is feeling well. Hopefully, going home today. Objective: Vital Signs: Temperature 97.1, pulse 70, respiration 18, blood pressure 137/64, sats 98% on room air. No pain. Laboratory Data: Microbiology grow Pseudomonas aeruginosa. Sensitivities slightly different from th e last one. This one seems to be resistant to cephalosporins but sensitive to Cipro and Levaquin, ge ntamicin, meropenem, and amikacin. The patient is currently on cefepime. Assessment And Plan: Pseudomonas sensitive to Levaquin, Cipro, meropenem, last one was resistant to Cipro. May want to consider IV meropenem for a week or 2. The Cipro may not be as sensitive as we pita rizzo. DUNG/ROLO Voice ID: [id number] Report ID: [id number]
[2017-11-28] MEDS: NACHLORIDE 0.45% 1,000 ML IV SCH (12:09)
--- NOTE | 2017-11-28 17:09 | P.DS ---
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 LUDWIG CAME WITH FEVER AND CHILLS AT OFFICE ON MON. HE HAS INDWELLING HAGEN FOR BPH, RETENTION OF URINE AND FAILED UROLIFT PROCEDURE. I GAVE HIM CEFTIN PO. HE GREW CULTURE WITH PSEUDOMONAS. WITH INTENTION OF ADMISSION I CALLED HIM ON MONDAY. BY THIS TIME HE HAD NO FEVER FELT GREAT. I TOLD HIM THAT A COLONIZED BACTERIA CAN GROW FROM [place] SO WE WILL WATCH. I WILL SEE HIM ON MONDAY AT OFFICE AND IF HE HAS MORE FEVER AND CHILLS THEN TO COME TO ER . HE LAST NIGHT STARTED TO HAVE FEVER AGAIN AND REPORTED TO ER TODAY. I CALLED ER PA SOON I SAW HIS NAME COME UP ON MY COMPUTER AND ADVISED CEFEPIME AND NOT MERREM TO AVOID A VERY STRONG AB THAT CAN BE A OVERKILL AND CREATE COMPLICATIONS LIKE C. DIFFICILE TOXIN. I EXPLAINED TO THE PA IN ER. MR. LUDWIG HAS IMPROVED WITH CEFEPIME. HE GREW PSEUDMONAS - ONE THAT WAS SENSITIVE TO CEFEPIME AND SECOND TIME HE GREW THAT WAS SENSITIVE TO CIPRO AND NOT CEFEPIME. I WILL COVER BOTH STRAINS. I WILL STILL AVOID VERY STRONG ABX FOR NOW HE WILL GET MORE AND MORE RESISTANT AND MAY GET C DIFF IN FUTURE. HE WANTS HIS PROSTATE SURGERY DONE IN [place]. DR MONTIEL WILL NOT TAKE HIM IT IS A UROLIFT COMPLICATION. [facility] HAS TAKEN HIM BUT ON Dec NOT EARLIER. HE HAD SHORT ASYMPTOMATIC A FIB AND DR FISHER HAS BEEN CALLED BY ME. HE WILL SEE HIM OUTPATIENT. Vital Signs/Physical Exam: Temp Pulse Resp BP Pulse Ox 98.4 F 60 16 157/84 H 99 11/28/17 12:00 11/28/17 12:00 11/28/17 12:00 11/28/17 12:00 11/28/17 12:00 Laboratory Data at Discharge: WBC 9.9 K/uL (4.3-10.9) D 11/28/17 06:30 Hgb 11.1 g/dL (13.6-17.9) L 11/28/17 06:30 Hct 32.3 % (39.6-49.0) L 11/28/17 06:30 Plt Count 266 K/uL (152-406) 11/28/17 06:30 PT 14.1 SECONDS (9.5-12.5) H 11/26/17 07:50 INR 1.19 11/26/17 07:50 APTT 32.6 SECONDS (24.3-36.9) 11/26/17 07:50 Sodium 141 mmol/L (136-145) 11/28/17 06:30 Potassium 3.8 mmol/L (3.5-5.1) 11/28/17 06:30 BUN 17 mg/dL (7-18) 11/28/17 06:30 Creatinine 1.20 mg/dL (0.55-1.3) 11/28/17 06:30 Glucose 94 mg/dL (74-106) 11/28/17 06:30 Home Medications: Atorvastatin Calcium [Lipitor*] 10 mg PO DAILY 11/26/17 Calcitriol [Rocaltrol] 0.25 mcg PO M,W,F 11/26/17 Clopidogrel Bisulfate [Plavix*] 75 mg PO DAILY 11/26/17 Diphenhydramine HCl [Sleep Aid] 50 mg PO BEDTIME 11/26/17 Latanoprost/Pf [Latanoprost 0.005% Eye Drop] 1 gtt EACH EYE BEDTIME 11/26/17 Levothyroxine [Synthroid*] 25 mcg PO DAILY 11/26/17 Metoprolol Succinate [Toprol Xl*] 25 mg PO DAILY 11/26/17 Ropinirole HCl [Requip] 4 mg PO BID 11/26/17 Vit A,C & E/Lutein/Minerals [Vision Formula Tablet] 1 tab PO DAILY 11/26/17 Ciprofloxacin HCl [Cipro 500 MG Tablet] 500 mg PO BID #28 tab 11/28/17 New Medications: Ciprofloxacin HCl [Cipro 500 MG Tablet] 500 mg PO BID #28 tab Patient Discharge Instructions: I TALKED TO DR. FISHER AND HE WILL SEE YOU IN OFFICE. COME TO MY OFFICE THIS MONDAY. CALL TO MAKE APT IN AM. YOU WILL GET TWO ABX. ON BY MOUTH CIPRO AND IV CEFEPIME. Diet: AHA
[2017-11-28 17:46] VITALS: BP 129/68; TEMP 98.9
== END 2017-11-28 18:09 | disposition home health service (06) | DRG 690 ==
LOC: ER 06:49 → ERHOLD 09:02 → 4TH 11:01
PROVIDERS: ADMIT Internal Medicine; ATTEND Internal Medicine
PROC: 02HV33Z Insertion of Infusion Device into Superior Vena Cava, Percutaneous Approach (ICD-10-PCS; principal; 2017-11-26)
DX: N39.0 Urinary tract infection, site not specified (principal); N40.1 Benign prostatic hyperplasia with lower urinary tract symptoms; R33.8 Other retention of urine; B96.5 Pseudomonas (aeruginosa) (mallei) (pseudomallei) as the cause of diseases classified elsewhere; E78.00 Pure hypercholesterolemia, unspecified; I10 Essential (primary) hypertension; I69.331 Monoplegia of upper limb following cerebral infarction affecting right dominant side; Z79.02 Long term (current) use of antithrombotics/antiplatelets; G25.81 Restless legs syndrome
CPT/HCPCS: 36415; 51702; 71045; 80048; 81003; 81015; 82550; 82553; 83605; 84145; 84484; 85025; 85610; 85730; 87040; 87077; 87086; 87088; 87186; 93005; 96365; 99285; J0692